=== PATIENT | female | born 1955 | race Caucasian/White ===

== ENCOUNTER 2020-05-19 18:22 | Emergency (ER) | payer MEDICARE ==
[2020-05-19] MEDS ORDERED: HYDROmorphone 0.5 MG/0.5 ML Syringe IVPUSH ONE (19:42)
[2020-05-19] MEDS ORDERED: Ondansetron 4 MG/2 ML SDV IVPUSH ONE (19:43)
[2020-05-19] MEDS ORDERED: Sodium Chloride 0.9% 1,000 ML IV SCH (19:45)
--- NOTE | 2020-05-19 19:47 | EDM.PDOC ---
ED HPI GENERAL MEDICAL PROBLEM - General Chief Complaint: Abdominal Pain Stated Complaint: RT SIDED ABDOMEN PAIN Time Seen by Provider: 05/19/20 19:40 Source of Information: Reports: Patient History Limitations: Reports: No Limitations - History of Present Illness INITIAL COMMENTS - FREE TEXT/NARRATIVE: Patient presents for evaluation of acute onset of right lower and upper quadrant pain that began around 5PM today. She recently traveled by car from [place], [place] 3 days ago and during that time developed nausea and vomiting. 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: Other Medication(s) (Peptobismol) Right Abdominal Pain Score (Numeric/FACES): 10 - Related Data Allergies Allergy/AdvReac Type Severity Reaction Status Date / Time No Known Allergies Allergy Verified 05/19/20 19:23 Home Meds: Home Meds NK [No Known Home Meds] 05/19/20 [History] Past Medical History HEENT History: Reports: Impaired Vision Gastrointestinal History: Reports: PUD Genitourinary History: Reports: Renal Calculus 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: Endocrine/Metabolic History: Reports: Hyperthyroidism Hematologic History: Reports: Anemia Dermatologic History: Reports: Eczema - Infectious Disease History Infectious Disease History: Reports: Chicken Pox, Measles, Mumps - Past Surgical History GI Surgical History: Reports: EGD Social & Family History - Tobacco Use Smoking Status *Q: Current Every Day Smoker Years of Tobacco use: 20 Packs/Tins Daily: 0.1 - Alcohol Use Days Per Week of Alcohol Use: 7 Number of Drinks Per Day: 2 Total Drinks Per Week: 14 Date of Last Drink: 05/15/20 - Recreational Drug Use Recreational Drug Use: No ED ROS GENERAL - Review of Systems Review Of Systems: Comprehensive ROS is negative, except as noted in HPI. Constitutional: Reports: Malaise, Decreased Appetite HEENT: Reports: No Symptoms Respiratory: Reports: No Symptoms Cardiovascular: Reports: No Symptoms Endocrine: Reports: Fatigue GI/Abdominal: Reports: Abdominal Pain, Nausea, Vomiting : Reports: No Symptoms Musculoskeletal: Reports: No Symptoms Skin: Reports: No Symptoms Neurological: Reports: No Symptoms Psychiatric: Reports: No Symptoms Hematologic/Lymphatic: Reports: No Symptoms Immunologic: Reports: No Symptoms ED EXAM, GI/ABD - Physical Exam Exam: See Below Exam Limited By: No Limitations General Appearance: Alert, Mild Distress Eyes: Bilateral: Normal Appearance, EOMI Ears: Normal External Exam Nose: Normal Inspection, Normal Mucosa Throat/Mouth: Normal Inspection, Normal Oropharynx Head: Atraumatic, Normocephalic Neck: Normal Inspection, Supple, Non-Tender, Full Range of Motion Respiratory/Chest: No Respiratory Distress, Lungs Clear, Normal Breath Sounds Cardiovascular: Normal Peripheral Pulses, Regular Rate, Rhythm, No Edema, No Murmur GI/Abdominal Exam: Distended, Guarding, Tender (Epigastric, RUQ, RLQ pain with palpation), Abnormal Bowel Sounds (decreased bowel sounds). No: Rebound Back Exam: Normal Inspection, Full Range of Motion Extremities: Normal Inspection, Normal Range of Motion Neurological: Alert, Oriented, Normal Cognition, No Motor/Sensory Deficits Psychiatric: Normal Affect, Normal Mood Skin Exam: Warm, Intact, Cyanosis (slight cyanosis toes), Rash (eczema right leg) Lymphatic: No Adenopathy Course - Vital Signs Last Recorded V/S: Last Vital Signs Temp 35.6 C L 05/19/20 19:27 Pulse 100 05/19/20 21:01 Resp 17 05/19/20 21:01 BP 158/64 H 05/19/20 21:01 Pulse Ox 99 05/19/20 21:01 - Orders/Labs/Meds Orders: Active Orders 24 hr Category Date Time Status Blood Pressure Mgt: Sepsis [RC] Q15MX2 Care 05/19/20 21:07 Active CULTURE BLOOD [BC] Urgent Lab 05/19/20 21:05 Received CULTURE BLOOD [BC] Urgent Lab 05/19/20 21:10 Received UA W/MICROSCOPIC [URIN] Stat Lab 05/19/20 19:43 Ordered Iopamidol [Isovue-300 (61%)] Med 05/19/20 20:00 Active 100 ml IV . DIRECTED Pantoprazole [ProTONIX IV] 80 mg Med 05/19/20 21:45 Active Sodium Chloride 0.9% [Normal Saline] 100 ml IV .BOLUS Sodium Chloride 0.9% [Normal Saline] 1,000 ml Med 05/19/20 19:45 Active IV ASDIRECTED Sodium Chloride 0.9% [Normal Saline] 80 ml Med 05/19/20 20:00 Active IV ASDIRECTED Sodium Chloride 0.9% [Saline Flush] Med 05/19/20 19:41 Active 10 ml FLUSH ASDIRECTED PRN Sodium Chloride 0.9% [Saline Flush] Med 05/19/20 21:05 Active 10 ml FLUSH ASDIRECTED PRN Vancomycin 1 gm Med 05/19/20 21:05 Active Sodium Chloride 0.9% [Normal Saline] 250 ml IV STAT Blood Culture x2 Reflex Set [OM.PC] Urgent Oth 05/19/20 20:58 Ordered Saline Lock Insert [OM.PC] Routine Oth 05/19/20 19:41 Ordered Saline Lock Insert [OM.PC] Stat Ot 05/19/20 21:05 Ordered Severe Sepsis Onset Time [OM.PC] Stat Oth 05/19/20 21:05 Ordered Medication Orders Sodium Chloride (Normal Saline) 1,000 mls @ 1,000 mls/hr IV ASDIRECTED [facility] Last Admin: 05/19/20 20:26 Dose: 1,000 mls/hr Documented by: RADHA Sodium Chloride (Normal Saline) 80 mls @ 3 mls/sec IV ASDIRECTED [facility] Last Admin: 05/19/20 20:39 Dose: 3 mls/sec Documented by: DIDI Vancomycin HCl 1 gm/ Sodium (Chloride) 250 mls @ 167 mls/hr IV STAT ONE Stop: 05/19/20 22:34 Pantoprazole Sodium 80 mg/ (Sodium Chloride) 100 mls @ 200 mls/hr IV .BOLUS [facility] Iopamidol (Isovue-300 (61%)) 100 ml IV . DIRECTED [facility] Last Admin: 05/19/20 20:39 Dose: 86 ml Documented by: DIDI Sodium Chloride (Saline Flush) 10 ml FLUSH ASDIRECTED PRN PRN Reason: Keep Vein Open Last Admin: 05/19/20 20:39 Dose: 10 ml Documented by: Admin: 05/19/20 20:27 Dose: 10 ml Documented by: RADHA Sodium Chloride (Saline Flush) 10 ml FLUSH ASDIRECTED PRN PRN Reason: Keep Vein Open Labs: Laboratory Tests 05/19/20 05/19/20 05/19/20 Range/Units 19:44 19:55 19:55 WBC 14.4 H (4.5-11.0) K/uL RBC 5.09 (3.30-5.50) M/uL Hgb 17.0 H (12.0-15.0) g/dL Hct 50.2 H (36.0-48.0) % MCV 99 H (80-98) fL MCH 33 H (27-31) pg MCHC 34 (32-36) % Plt Count 272 (150-400) K/uL Neut % (Auto) 85 H (36-66) % Lymph % (Auto) 7 L (24-44) % Knox % (Auto) 7 H (2-6) % Eos % (Auto) 0 L (2-4) % Baso % (Auto) 0 (0-1) % Sodium 129 L (140-148) mmol/L Potassium 3.8 (3.6-5.2) mmol/L Chloride 91 L (100-108) mmol/L Carbon Dioxide 20 L (21-32) mmol/L Anion Gap 21.8 H (5.0-14.0) mmol/L BUN 17 (7-18) mg/dL Creatinine 1.2 H (0.6-1.0) mg/dL Est Cr Clr Drug Dosing 40.79 mL/min Estimated GFR (MDRD) 45 L (>60) Glucose 170 H (74-106) mg/dL Lactic Acid 3.8 H (0.4-2.0) mmol/L Calcium 9.6 (8.5-10.1) mg/dL Total Bilirubin 0.6 (0.2-1.0) mg/dL AST 20 (15-37) U/L ALT 23 (12-78) U/L Alkaline Phosphatase 105 (46-116) U/L Total Protein 7.3 (6.4-8.2) g/dL Albumin 3.8 (3.4-5.0) g/dL Globulin 3.5 (2.3-3.5) g/dL Albumin/Globulin Ratio 1.1 L (1.2-2.2) Lipase 104 (73-393) U/L Meds: Medications Generic Name Dose Route Start Last Admin Trade Name Freq PRN Reason Stop Dose Admin Sodium Chloride 1,000 mls @ 1,000 mls/hr 05/19/20 19:45 05/19/20 20:26 Normal Saline IV 1,000 mls/hr ASDIRECTED [facility] Administration Sodium Chloride 80 mls @ 3 mls/sec 05/19/20 20:00 05/19/20 20:39 Normal Saline IV 3 mls/sec ASDIRECTED [facility] Administration Vancomycin HCl 1 gm/ Sodium 250 mls @ 167 mls/hr 05/19/20 21:05 Chloride IV 05/19/20 22:34 STAT ONE Pantoprazole Sodium 80 mg/ 100 mls @ 200 mls/hr 05/19/20 21:45 Sodium Chloride IV .BOLUS [facility] Iopamidol 100 ml 05/19/20 20:00 05/19/20 20:39 Isovue-300 (61%) IV 86 ml . DIRECTED [facility] Administration Sodium Chloride 10 ml 05/19/20 19:41 05/19/20 20:39 Saline Flush FLUSH 10 ml ASDIRECTED PRN Administration Keep Vein Open Sodium Chloride 10 ml 05/19/20 21:05 Saline Flush FLUSH ASDIRECTED PRN Keep Vein Open Discontinued Medications Generic Name Dose Route Start Last Admin Trade Name Huber PRN Reason Stop Dose Admin Hydromorphone HCl 0.5 mg 05/19/20 19:42 05/19/20 20:26 Dilaudid IVPUSH 05/19/20 19:43 0.5 mg ONETIME ONE Administration Hydromorphone HCl 1 mg 05/19/20 20:49 05/19/20 20:58 Dilaudid IVPUSH 05/19/20 20:50 1 mg ONETIME ONE Administration Sodium Chloride 1,000 mls @ 1,000 mls/hr 05/19/20 21:05 Normal Saline IV 05/19/20 22:04 BOLUS ONE Ceftriaxone Sodium 1 gm/ 50 mls @ 100 mls/hr 05/19/20 21:05 05/19/20 21:16 Sodium Chloride IV 05/19/20 21:34 100 mls/hr STAT ONE Administration Ondansetron HCl 4 mg 05/19/20 19:43 05/19/20 20:26 Zofran IVPUSH 05/19/20 19:44 4 mg ONETIME ONE Administration Pantoprazole Sodium Confirm 05/19/20 22:01 Protonix Iv Administered 05/19/20 22:02 Dose 80 mg .ROUTE .STK-MED ONE - Re-Assessments/Exams Free Text/Narrative Re-Assessment/Exam: 05/19/20 21:41 CT of the Abdomen and pelvis revealed a perforated duodenal ulcer in the first part of the duodenum with a small amount of free air in the peritonium and free fluid around the liver and in the pelvis. Free Text/Narrative Re-Assessment/Exam: 05/19/20 21:53 I discussed the case with Dr. Eid from General surgery who felt the patient is beyond the scope of what can be handled here and recommended the patient be transferred to [place]. Free Text/Narrative Re-Assessment/Exam: 05/19/20 22:11 I discussed the case with Dr. Leahy at [facility] ED and with Dr. Ladd [facility] General surgery who accepted the patient in transfer to [facility] for further evaluation and care. This was also discussed with the patient who also agrees with the transfer plan. Departure - Departure Time of Disposition: 22:30 Disposition: DC/Tfer to Acute Hospital 02 Condition: Fair Clinical Impression: Duodenal ulcer perforation - Discharge Information *PRESCRIPTION DRUG MONITORING PROGRAM REVIEWED*: Not Applicable Instructions: Peptic Ulcer Referrals: PCP,None [Primary Care Provider] - Forms: ED Department Discharge Sepsis Event Note (ED) - Evaluation Sepsis Screening Result: Possible Sepsis Risk - Focused Exam Vital Signs: Vital Signs Temp Pulse Resp BP Pulse Ox 05/19/20 21:01 100 17 158/64 H 99 05/19/20 19:54 99 17 147/86 H 99 05/19/20 19:27 35.6 C L 99 19 129/88 99 05/19/20 19:25 35.6 C L 99 19 129/88 99 - Problem List & Annotations (1) Duodenal ulcer perforation SNOMED Code(s): 20991732 Code(s): K26.5 - CHRONIC OR UNSPECIFIED DUODENAL ULCER WITH PERFORATION Status: Acute Priority: High Current Visit: Yes Onset Date: ~05/19/20 - Problem List Review Problem List Initiated/Reviewed/Updated: Yes - My Orders Last 24 Hours: My Active Orders 05/19/20 19:41 Sodium Chloride 0.9% [Saline Flush] 10 ml FLUSH ASDIRECTED PRN Saline Lock Insert [OM.PC] Routine 05/19/20 19:43 UA W/MICROSCOPIC [URIN] Stat 05/19/20 19:45 Sodium Chloride 0.9% [Normal Saline] 1,000 ml IV ASDIRECTED 05/19/20 20:00 Iopamidol [Isovue-300 (61%)] 100 ml IV . DIRECTED Sodium Chloride 0.9% [Normal Saline] 80 ml IV ASDIRECTED 05/19/20 20:58 Blood Culture x2 Reflex Set [OM.PC] Urgent 05/19/20 21:05 CULTURE BLOOD [BC] Urgent Sodium Chloride 0.9% [Saline Flush] 10 ml FLUSH ASDIRECTED PRN Vancomycin 1 gm Sodium Chloride 0.9% [Normal Saline] 250 ml IV STAT Saline Lock Insert [OM.PC] Stat Severe Sepsis Onset Time [OM.PC] Stat 05/19/20 21:07 Blood Pressure Mgt: Sepsis [RC] Q15MX2 05/19/20 21:10 CULTURE BLOOD [BC] Urgent 05/19/20 21:45 Pantoprazole [ProTONIX IV] 80 mg Sodium Chloride 0.9% [Normal Saline] 100 ml IV .BOLUS - Assessment/Plan Last 24 Hours: My Active Orders 05/19/20 19:41 Sodium Chloride 0.9% [Saline Flush] 10 ml FLUSH ASDIRECTED PRN Saline Lock Insert [OM.PC] Routine 05/19/20 19:43 UA W/MICROSCOPIC [URIN] Stat 05/19/20 19:45 Sodium Chloride 0.9% [Normal Saline] 1,000 ml IV ASDIRECTED 05/19/20 20:00 Iopamidol [Isovue-300 (61%)] 100 ml IV . DIRECTED Sodium Chloride 0.9% [Normal Saline] 80 ml IV ASDIRECTED 05/19/20 20:58 Blood Culture x2 Reflex Set [OM.PC] Urgent 05/19/20 21:05 CULTURE BLOOD [BC] Urgent Sodium Chloride 0.9% [Saline Flush] 10 ml FLUSH ASDIRECTED PRN Vancomycin 1 gm Sodium Chloride 0.9% [Normal Saline] 250 ml IV STAT Saline Lock Insert [OM.PC] Stat Severe Sepsis Onset Time [OM.PC] Stat 05/19/20 21:07 Blood Pressure Mgt: Sepsis [RC] Q15MX2 05/19/20 21:10 CULTURE BLOOD [BC] Urgent 05/19/20 21:45 Pantoprazole [ProTONIX IV] 80 mg Sodium Chloride 0.9% [Normal Saline] 100 ml IV .BOLUS
[2020-05-19] MEDS ORDERED: Sodium Chloride 0.9% 80 ML IV SCH (20:00)
[2020-05-19] MEDS ORDERED: Iopamidol 612 MG/ML 100 ML Bottle IV SCH (20:00)
[2020-05-19] MEDS: Sodium Chloride 0.9% 10 ML Syringe FLUSH PRN ×2 (20:27→20:39)
[2020-05-19] MEDS ORDERED: HYDROmorphone 1 MG/ML Syringe IVPUSH ONE (20:49)
[2020-05-19] MEDS ORDERED: cefTRIAXone 1 GM in Sodium Chloride 0.9% 50 ML IV ONE (21:05)
[2020-05-19] MEDS ORDERED: Sodium Chloride 0.9% 1,000 ML IV ONE (21:05)
[2020-05-19] MEDS ORDERED: Sodium Chloride 0.9% 10 ML Syringe FLUSH PRN (21:05)
--- NOTE | 2020-05-19 21:33 | CRLCT ---
INDICATION: Acute right lower quadrant abdominal pain TECHNIQUE: CT abdomen and pelvis acquired with 86 cc Isovue 300 IV contrast. COMPARISON: None FINDINGS: Lower chest: Unremarkable. Liver: Hepatic steatosis. Spleen: Unremarkable. Pancreas: Unremarkable. Gallbladder and bile ducts: Unremarkable. Adrenal glands: Unremarkable. Kidneys: Unremarkable. GI tract: Perforated duodenal ulcer involving the 1st portion the duodenum. Small amount of periduodenal fat stranding and extra luminal air. Small amount of free fluid in the peritoneal cavity. Disruption of the duodenal wall can be seen on image 24 series 3. The appendix is not seen. Vascular structures: Moderate aortoiliac calcifications. Lymph nodes: Unremarkable. Miscellaneous: Unremarkable. No free air or significant free fluid. Pelvic Organs: Unremarkable. Bones: Unremarkable for age. IMPRESSION: Perforated duodenal ulcer with small amount of extraluminal air. Hepatic steatosis. Findings discussed with Dr. Carlson at 9:30 p.m. on May 19, 2020. Please note that all CT scans at this facility use dose modulation, iterative reconstruction, and/or weight-based dosing when appropriate to reduce radiation dose to as low as reasonably achievable. Dictated by Flores Rodriguez MD @ May 19 2020 9:31PM Signed by Dr. Flores Rodriguez @ May 19 2020 9:31PM
[2020-05-19] MEDS ORDERED: Pantoprazole 80 MG in Sodium Chloride 0.9% 100 ML IV SCH (21:45)
[2020-05-19] MEDS ORDERED: Pantoprazole 40 MG Vial ONE (22:01)
== END 2020-05-19 23:02 ==
LOC: JP.ED 18:22
DX: K26.5 Chronic or unspecified duodenal ulcer with perforation (principal); R23.0 Cyanosis; L30.9 Dermatitis, unspecified; F17.210 Nicotine dependence, cigarettes, uncomplicated
CPT/HCPCS: 36415; 74177; 80053; 83605; 83690; 85025; 87040; 96361; 96365; 96367; 96375; 99285; C9113; J0696; J1170; J2405; J3370; J7030; J7050; Q9967